=== PATIENT | male | born 1990 | race Asian ===

== ENCOUNTER → 2016-11-16 | Outpatient (CLI) | payer SELFPAY ==
--- NOTE | 2016-11-16 08:46 | RAD ---
Indication left flank pain. Grayscale imaging targeted to the kidneys was performed. No similar imaging is available. The right kidney measures 12 x 5.2 x 4.3 cm and appears normal. No hydronephrosis or mass is seen. A right ureteral jet was demonstrated during the exam. The left kidney measures 12.8 x 5.8 x 6.1 cm. There is mild left hydronephrosis. No ureteral jet was seen on the left. No renal mass was seen. The urinary bladder appeared grossly normal. IMPRESSION: Mild to moderate left hydronephrosis.
== END | disposition home or self-care (01) ==
LOC: US 07:22
PROVIDERS: ATTEND Family Medicine
DX: N13.30 Unspecified hydronephrosis (principal)
CPT/HCPCS: 76770